=== PATIENT | female | born 1950 | race Caucasian/White ===

== ENCOUNTER → 2023-03-08 | Emergency (ER) | payer OTHER ==
[~2023-03-08] VITALS: Ht 162.6 cm; Wt 68.0 kg
[~2023-03-08] MED LIST: CRESTOR10 MG
[2023-03-08 15:41] LABS: URINE APPEARANCE Clear; URINE BILIRRUBIN Negative (NEGATIVE); URINE BLOOD Moderate; URINE COLOR Yellow; URINE GLUCOSE Negative (NEGATIVE); URINE LEUKOCYTE Trace; URINE NITRATE Negative; URINE PROTEIN Negative (NEGATIVE); URINE UROBILINOGEN 0.2 E.U./dl
[2023-03-08 15:42] LABS: HEMATOCRIT 38.9 % (36.0-45.00); HEMOGLOBIN 13.6 g/dL (12.0-15.00); MEAN CELL VOLUME 90.8 fL (80.00-100.00); MEAN CORPUSCULAR HEMOGLOBIN 31.8 pg (27.00-32.0); MEAN CORPUSCULAR HGB CONC 35.1 g/dl (32.0-36.0); PLATELET COUNT 325 K/uL (150-450); RED BLOOD COUNT 4.28 M/uL (4.00-6.00); RED CELL DISTRIBUTION WIDTH 13.2 % (11.5-14.5)
[2023-03-08 15:45] LABS: URINE EPITHELIAL CELLS 13.4 uL (0.0-38.8); URINE RBC 47.5 uL (0.0-20.8); URINE WBC 21.4 uL (0.0-23.2)
[2023-03-08 16:18] LABS: CALCIUM 9.3 mg/dL (8.5-10.1); CREATININE SERUM 0.82 mg/dL (0.55-1.02); GFR 68.53; POTASSIUM 4.78 mEq/L (3.5-5.1)
[2023-03-08 17:47] LABS: INR 0.98; PROTHROMBIN TIME 10.3 SECONDS (9.0-11.5)
[2023-03-08 23:56] LABS: CALCIUM 8.8 mg/dL (8.5-10.1); CREATININE SERUM 0.83 mg/dL (0.55-1.02); GFR 67.57; POTASSIUM 4.42 mEq/L (3.5-5.1)
== END | disposition home or self-care (01) ==
LOC: ER 13:28
PROVIDERS: General Practice
DX: E87.1 Hypo-osmolality and hyponatremia (principal); R10.31 Right lower quadrant pain; K59.00 Constipation, unspecified; Z20.822 Contact with and (suspected) exposure to COVID-19